=== PATIENT | male | born 1960 | race Caucasian/White ===

== ENCOUNTER 2019-10-13 15:22 | Observation (INO) | payer BC ==
[~2019-10-13] VITALS: Ht 180.3 cm; Wt 97.8 kg
[~2019-10-13 15:22] MED LIST: ASPIRIN 32325 MG/TAB PO; FLEXERIL 1010 MG/TAB PO; LESCOL; LEXAPRO 10MG10 MG PO; LOPRESSOR 225 MG/TAB PO; LOTENSIN 1010 MG/TAB PO; NITROSTAT0.4 MG/TAB SL; NORCO 325 MG-51 TAB PO; PERCOCET 500 MG1 TAB PO; ROBAXIN-750750 MG PO; VASOTEC10 MG PO; ZOFRAN 4MG T4 MG/TAB PO
[2019-10-13 16:11] LABS: BASO # 0.1 (0.0-0.2); BASO % 0.8 % (0.0-2.0); EOS # 0.1 (0.0-0.7); EOS % 1.4 % (0-4.0); GRAN # 4.4 (1.4-6.5); GRAN % 56.3 % (42.2-75.2); HEMATOCRIT 45.9 % (42.0-52.0); HEMOGLOBIN 15.2 g/dl (13.5-18.0); LYMPH # 2.3 (1.2-3.4); LYMPH % 30.1 % (20.0-51.0); MEAN CELL VOLUME 87 fl (80.0-100.0); MEAN CORPUSCULAR HEMOGLOBIN 29 pg (27.0-31.0); MEAN CORPUSCULAR HGB CONC 33 g/dl (33.0-37.0); MONO # 0.9 (0.1-0.6); MONO % 11.3 % (1.7-9.3); PLATELET COUNT 201 K/mm3 (130-400); RED BLOOD COUNT 5.27 M/mm3 (4.20-5.60); REDCELL DISTRIBUTION WIDTH-CV 13.1 % (11.5-14.5)
[2019-10-13 16:12] LABS: INR 1.1 (0.8-3.0); PROTHROMBIN TIME 12.7 SECONDS (9.7-12.8)
[2019-10-13 16:15] LABS: PARTIAL THROMBOPLASTIN TIME 37.2 SECONDS (26.0-37.0)
[2019-10-13 16:21] LABS: ALANINE AMINOTRANSFERASE 36 U/L (4-49); ALBUMIN 4.6 gm/dL (3.5-5.0); ALKALINE PHOSPHATASE 59 U/L (50-136); ANION GAP 8 mmol/L (7-16); AST,SGOT 43 U/L (15-37); BILIRUBIN,TOTAL 0.8 mg/dL (0.0-1.0); BLOOD UREA NITROGEN 35 mg/dL (9-20); CALCIUM 9.2 mg/dL (8.4-10.2); CARBON DIOXIDE 26 mmol/L (22-30); CHLORIDE 102 mmol/L (98-107); CREATININE, serum 1.61 (0.66-1.25); GLUCOSE 118 mg/dL (74-106); MAGNESIUM 2.3 mg/dL (1.6-2.3); POTASSIUM 4.3 mmol/L (3.4-5.0); SODIUM 136 mmol/L (137-145); TOTAL PROTEIN 8.5 gm/dL (6.4-8.2)
[2019-10-13 16:32] LABS: TROPONIN-I < 0.012 ng/mL (0.000-0.035)
[2019-10-13 17:58] LABS: COLLECTION METHOD CLEAN CATCH
[2019-10-13 18:06] LABS: MUCOUS Present /lpf; PH 5 (5-8); SQUAMOUS EPITHELIAL None Seen /hpf; URINE APPEARANCE Clear; URINE BACTERIA None Seen /hpf; URINE BILIRUBIN Negative (NEGATIVE); URINE BLOOD 2+ (NEGATIVE); URINE COLOR Yellow; URINE GLUCOSE Negative (NEGATIVE); URINE KETONE Negative (NEGATIVE); URINE LEUKOCYTE ESTERASE Negative (NEGATIVE); URINE NITRATE Negative (NEGATIVE); URINE PROTEIN(semi-quant) 1+ (NEGATIVE); URINE UROBILINOGEN Negative (NEGATIVE)
--- NOTE | 2019-10-13 18:50 | NUR ---
PATIENT TO FLOOR FROM ER. TELE IN PLACE. SALINE LOCK TO RAC IN PLACE, NO REDNESS/SWELLING. DENIES ANY NEEDS OR CONCERNS OR C/O AT THIS TIME.
[2019-10-13 19:38] VITALS: BP 131/73; PULSE 66; TEMP 98.4
--- NOTE | 2019-10-13 20:00 | NUR ---
OBSERVED BUE WHITE SHOE EXAMINER WEAK WITH LEFT LESS THAN RIGHT. BLE STRENGTH EQUAL AND STRONG. DENIES NUMBNESS/TINGLING TO EXTREMITIES WITH LUE SENSATION LESS THAN RUE SENSATION. NO FACIAL DROOPING OBSERVED. DENIES CHEST PAIN/SHORTNESS OF BREATHE AT THIS TIME. DENIES ANY NEEDS OR CONCERNS.
[2019-10-13 20:30] VITALS: BP 115/64; PULSE 66; TEMP 98.5
[2019-10-14 00:45] VITALS: BP 102/63; PULSE 62; TEMP 98
[2019-10-14 04:20] VITALS: BP 95/54; PULSE 57; TEMP 98.2
--- NOTE | 2019-10-14 05:59 | NUR ---
PATIENT INFORMED OF NPO STATUS AT 0500 FOR MRI TESTING. NO NEEDS REPORTED.
[2019-10-14 06:47] LABS: BASO # 0.1 (0.0-0.2); BASO % 0.9 % (0.0-2.0); EOS # 0.1 (0.0-0.7); EOS % 1.9 % (0-4.0); GRAN % 51.5 % (42.2-75.2); HEMATOCRIT 42.2 % (42.0-52.0); HEMOGLOBIN 13.6 g/dl (13.5-18.0); LYMPH # 1.9 (1.2-3.4); LYMPH % 33.3 % (20.0-51.0); MEAN CELL VOLUME 88 fl (80.0-100.0); MEAN CORPUSCULAR HEMOGLOBIN 28 pg (27.0-31.0); MEAN CORPUSCULAR HGB CONC 32 g/dl (33.0-37.0); MEAN PLATELET VOLUME 10.1 fl (7.4-10.4); MONO # 0.7 (0.1-0.6); MONO % 12.2 % (1.7-9.3); PLATELET COUNT 167 K/mm3 (130-400); RED BLOOD COUNT 4.81 M/mm3 (4.20-5.60); REDCELL DISTRIBUTION WIDTH-CV 13.1 % (11.5-14.5)
[2019-10-14 07:00] LABS: CALCIUM 8.5 mg/dL (8.4-10.2); CHOLESTEROL RISK RATIO 8.8; CREATININE, serum 1.38 (0.66-1.25); POTASSIUM 4.9 mmol/L (3.4-5.0)
--- NOTE | 2019-10-14 07:19 | NUR ---
PATIENT RESTING IN BED DURING CHANGE OF SHIFT REPORT GIVEN TO DAY SHIFT NURSECARLENE. PATIENT NPO FOR MRI, YET TO BE SCHEDULED TODAY. NO PATIENT NEEDS/COMPLAINTS REPORTED AT THIS TIME.
[2019-10-14 07:28] VITALS: BP 104/73; PULSE 59; TEMP 97.9
[2019-10-14 11:22] VITALS: BP 98/61; PULSE 58; TEMP 98.2
--- NOTE | 2019-10-14 11:53 | NUR ---
SW met with the patient to discuss discharge plan. The patient lives in [place] with his , Lizy (ph#[phone]). He reports independence with ADLs and does not have any DME. The patient's PCP is Dr. Tyson Valladares and he receives his medications at [facility]. He reports no difficulties obtaining his meds. The patient does not have advanced directives, but he was interested in obtaining a form for DPOA-HC. SW provided. OT worked with the patient and recommended outpatient OT. SW discussed this with the patient. The patient reports that he is not sure if he wants to do outpatient OT at this time. The patient plans to return home with his upon discharge. SW to continue to follow as needed.
--- NOTE | 2019-10-14 12:32 | NUR ---
First visit from the in flight technician. No needs right now.
[2019-10-14 15:37] VITALS: BP 110/66; PULSE 58; TEMP 98.1
--- NOTE | 2019-10-14 19:28 | NUR ---
Patient resting in bed at this time. Patient is alert and oriented, answers questions appropriately. Patient neuro status has remained stable today, some weakness in the left arm, but is able to feel sensation, and hold with no drift. Patient continues to deny pain or needs, call light within reach.
[2019-10-14 20:34] VITALS: BP 129/71; PULSE 63; TEMP 97.6
[2019-10-15 00:17] VITALS: BP 129/75; PULSE 59; TEMP 98.1
--- NOTE | 2019-10-15 02:25 | NUR ---
Patient has rested well throughout the night. Denies pain. Neuros are within normal limits except for hand animal care service worker which are unequal with the left being weaker than the right. Both hand animal care service worker are weak. Patient ambulates independently with steady gait. Patient took medications with no difficulty. Denies any needs. Will continue to monitor.
[2019-10-15 04:35] VITALS: BP 124/66; PULSE 62; TEMP 98.1
[2019-10-15 07:20] VITALS: BP 141/83; PULSE 67; TEMP 98.4
[2019-10-15 10:16] LABS: CALCIUM 8.7 mg/dL (8.4-10.2); CREATININE, serum 1.2 (0.66-1.25); POTASSIUM 4.5 mmol/L (3.4-5.0)
[2019-10-15] MEDS ORDERED: PEPCID 20MG TAB20 MG PO (11:20)
[2019-10-15] MEDS ORDERED: PLAVIX 75MG TAB75 MG PO (11:21)
--- NOTE | 2019-10-15 13:05 | NUR ---
SEE MORNING SHIFT ASSESSMENT. IV DISCONTINUED PER PENDING DISCHARGE. PATIENT TOLERATED WELL. DISCHARGE INSTRUCTIONS REVIEWED WITH PATIENT. QUESTIONS SOUGHT AND ANSWERED. PATIENT PERSONAL BELONGINGS GATHERED. PATIENT AMBULATED TO PERSONAL VEHICLE WITH SURGICAL STAFF. PATIENT DISCHARGED.
== END 2019-10-15 13:05 | disposition home or self-care (01) ==
LOC: COL.ER 15:22 → SURG 17:53
PROVIDERS: Emergency Medicine; Physician Assistant; ADMIT Hospitalist
DX: I63.89 Other cerebral infarction (principal); G81.94 Hemiplegia, unspecified affecting left nondominant side; I10 Essential (primary) hypertension; N17.9 Acute kidney failure, unspecified; R73.03 Prediabetes; G93.89 Other specified disorders of brain; E78.1 Pure hyperglyceridemia; E78.5 Hyperlipidemia, unspecified; Z87.891 Personal history of nicotine dependence; Z82.3 Family history of stroke; Z79.82 Long term (current) use of aspirin; Z79.899 Other long term (current) drug therapy
CPT/HCPCS: 99223-AI; A9585; G0378; J1650; J7030; Q9967

== ENCOUNTER 2019-10-22 14:30 | Outpatient (RCR) | payer BC ==
[~2019-10-22 14:30] MED LIST changes: +PEPCID 20MG TAB20 MG PO; +PLAVIX 75MG TAB75 MG PO
== END 2019-12-26 13:48 | disposition home or self-care (01) ==
LOC: MKS.ESL.OT 14:30
DX: I69.322 Dysarthria following cerebral infarction (principal); I69.354 Hemiplegia and hemiparesis following cerebral infarction affecting left non-dominant side

== ENCOUNTER 2021-10-19 14:35 | Emergency (ER) | payer OTHER ==
[~2021-10-19] VITALS: Ht 180.3 cm; Wt 93.6 kg
[2021-10-19 14:50] VITALS: TEMP 98.6
[2021-10-19] MEDS ORDERED: PEPCID40 MG PO (15:01)
[2021-10-19 15:50] LABS: BASO # 0.1 K/mm3 (0.0-0.2); BASO % 0.5 % (0.0-2.0); EOS % 0.3 % (0.0-4.0); GRAN # 9.5 K/mm3 (1.4-6.5); GRAN % 72.7 % (42.2-75.2); HEMATOCRIT 43.3 % (42.0-52.0); HEMOGLOBIN 14.6 g/dl (13.5-18.0); LYMPH # 1.9 K/mm3 (1.2-3.4); LYMPH % 14.9 % (20.0-51.0); MEAN CELL VOLUME 86 fl (80.0-100.0); MEAN CORPUSCULAR HEMOGLOBIN 29 pg (27-31); MEAN CORPUSCULAR HGB CONC 34 g/dl (33.0-37.0); MEAN PLATELET VOLUME 10.5 fl (7.4-10.4); MONO # 1.5 K/mm3 (0.1-0.6); MONO % 11.3 % (1.7-9.3); PLATELET COUNT 237 K/mm3 (130-400); RED BLOOD COUNT 5.05 M/mm3 (4.20-5.60)
[2021-10-19 16:06] LABS: ALANINE AMINOTRANSFERASE 36 U/L (0-55); ALBUMIN 4.9 gm/dL (3.4-4.8); ALKALINE PHOSPHATASE 59 U/L (40-150); ANION GAP 17 mmol/L (7-16); AST,SGOT 46 U/L (5-34); BLOOD UREA NITROGEN 41 mg/dL (8-26); CALCIUM 10.4 mg/dL (8.4-10.2); CARBON DIOXIDE 21 mmol/L (23-31); CHLORIDE 101 mmol/L (98-107); CREATINE KINASE 1367 U/L (30-200); CREATININE, serum 2.77 mg/dL (0.72-1.25); GLUCOSE 94 mg/dL (70-99); POTASSIUM 5.4 mmol/L (3.5-4.5); SODIUM 139 mmol/L (136-145); TOTAL PROTEIN 9.4 gm/dL (6.2-8.1)
[2021-10-19 16:13] LABS: TROPONIN-I < 0.010 ng/mL (0.00-0.033)
[2021-10-19 17:15] LABS: COLLECTION METHOD CLEAN CATCH
[2021-10-19 17:25] LABS: MUCOUS Present (NOT PRESENT); PH 5 (5-8); SQUAMOUS EPITHELIAL 0-2 /hpf (0-10); URINE APPEARANCE Hazy (CLEAR/HAZY); URINE BACTERIA Rare /hpf (NONE SEEN); URINE BLOOD 2+ (NEGATIVE); URINE COLOR Yellow (YELLOW); URINE GLUCOSE Negative (NEGATIVE); URINE KETONE Trace (NEGATIVE); URINE NITRATE Negative (NEGATIVE); URINE PROTEIN(semi-quant) 2+ (NEGATIVE); URINE UROBILINOGEN Negative (NEGATIVE)
[2021-10-19 18:17] LABS: CALCIUM 9.5 mg/dL (8.4-10.2); CREATININE, serum 2.36 mg/dL (0.72-1.25)
[2021-10-19 19:15] VITALS: BP 121/73; PULSE 62
== END 2021-10-19 19:25 | disposition home or self-care (01) ==
LOC: COL.ER 14:35
PROVIDERS: Emergency Medicine
DX: T67.5XXA Heat exhaustion, unspecified, initial encounter (principal); N28.9 Disorder of kidney and ureter, unspecified; E86.0 Dehydration; R74.8 Abnormal levels of other serum enzymes; Z87.891 Personal history of nicotine dependence; X30.XXXA Exposure to excessive natural heat, initial encounter
CPT/HCPCS: J7120